=== PATIENT | male | born 1940 | race Two or more races ===

== ENCOUNTER 2025-09-06 14:05 | Inpatient (IN) | payer OTHER, MEDICAID ==
[~2025-09-06] VITALS: Ht 157.5 cm; Wt 90.3 kg
[2025-09-06] MEDS: IV NS 0.9% 1,000 ML BAG IV ONE (14:28)
[2025-09-06 14:33] LABS: PLATELET COUNT (AUTO) 86 K/uL (150-450); RED BLOOD CELL COUNT(AUTO) 2.35 MIL/uL (4.5-6.0); RED CELL DISTRIBUTION WIDTH 17.8 % (11.5-15.0); WHITE BLOOD COUNT (AUTO) 7.8 K/uL (4.3-11.0)
[2025-09-06 14:40] LABS: CALCIUM, SERUM 6.6 mg/dL (8.5-10.1); CREATININE 1.0 mg/dL (0.6-1.3); SODIUM SERUM 142 mmol/L (136-145); UREA NITROGEN, BLOOD 27 mg/dL (7-18)
[2025-09-06] MEDS: CEFTRIAXONE 1 G in IV D5W 50 ML IV ONE (14:50)
[2025-09-06 14:52] LABS: ASPARTATE AMINOTRANSFERASE 32 U/L (15-37); LACTIC ACID 2.1 mmol/L (0.4-2.0); NT-PRO BNP 1081 pg/mL (0-125); TOTAL PROTEIN, SERUM 4.2 g/dL (6.4-8.2)
[2025-09-06] MEDS ORDERED: MAGN400O6 PO (14:55)
[2025-09-06] MEDS ORDERED: CALCIUM PO (14:55)
[2025-09-06] MEDS ORDERED: ZINC50TA69 PO (14:55)
[2025-09-06] MEDS ORDERED: LEVO75TA7 PO (14:55)
[2025-09-06] MEDS ORDERED: MAGN355O5 PO (14:55)
[2025-09-06] MEDS ORDERED: SENN-261 PO (14:55)
[2025-09-06] MEDS ORDERED: SIME80TA15 PO (14:55)
[2025-09-06] MEDS ORDERED: OXYB5TAB16 PO (14:55)
[2025-09-06] MEDS ORDERED: AMIN30LI66 PO (14:55)
[2025-09-06] MEDS ORDERED: INSU100V39 SQ ×2 (14:55)
[2025-09-06] MEDS ORDERED: CRAN400C PO (14:55)
[2025-09-06] MEDS ORDERED: POLY119P17 PO (14:55)
[2025-09-06] MEDS ORDERED: ASCO500C17 PO (14:55)
[2025-09-06] MEDS ORDERED: ACET-73 PO (14:55)
[2025-09-06] MEDS ORDERED: OXYC5TAB3 PO (14:55)
[2025-09-06] MEDS ORDERED: ACET325T53 PO ×2 (14:55)
[2025-09-06] MEDS ORDERED: FAMO20TA8 PO (14:55)
[2025-09-06] MEDS ORDERED: DOCU50LI PO (14:55)
[2025-09-06] MEDS ORDERED: LOSA50TA39 PO (14:55)
[2025-09-06] MEDS ORDERED: FINA5TAB11 PO (14:55)
[2025-09-06] MEDS ORDERED: MULT-213 PO (14:55)
[2025-09-06] MEDS ORDERED: ATOR40TA PO (14:55)
[2025-09-06] MEDS ORDERED: TIZA4TAB5 PO (14:55)
[2025-09-06] MEDS ORDERED: GABA-532 PO (14:55)
[2025-09-06] MEDS ORDERED: LIDO1ADH71 TP (14:55)
[2025-09-06] MEDS ORDERED: TAMS-12 PO (14:55)
[2025-09-06] MEDS ORDERED: [UNRECOGNIZED DRUG - OTHER] PO (14:55)
[2025-09-06] MEDS ORDERED: BISA10SU61 RC (14:55)
[2025-09-06] MEDS ORDERED: DEXA4TAB PO (14:55)
[2025-09-06] MEDS ORDERED: IV NS 0.9% 250 ML IV ONE (15:20)
[2025-09-06] MEDS ORDERED: IOHEXOL-350 100 ML VIAL IV ONE (15:20)
[2025-09-06] MEDS ORDERED: FUROSEMIDE 20 MG/2 ML VIAL ONE (16:32)
[2025-09-06] MEDS: FUROSEMIDE 20 MG/2 ML VIAL IV ONE (16:39)
[2025-09-06] MEDS ORDERED: ALBUTEROL FS 2.5 MG/3 ML VIAL.NEB NEB PRN (18:00)
[2025-09-06] MEDS ORDERED: SIMETHICONE 80 MG TAB.CHEW PO PRN (18:00)
[2025-09-06] MEDS ORDERED: HYDROCODONE/APAP 5/325MG TABLET PO PRN (18:00)
[2025-09-06] MEDS ORDERED: ONDANSETRON HCL/PF 4 MG/2 ML VIAL IVP PRN (18:00)
[2025-09-06] MEDS ORDERED: DEXTROSE 50%-WATER 50 ML DISP.SYRIN IV PRN (18:00)
[2025-09-06] MEDS ORDERED: IPRATROPIUM NEB FS 0.5 MG/2.5 ML AMPUL.NEB NEB PRN (18:00)
[2025-09-06] MEDS ORDERED: MAG HYDROX/AL HYDROX/SIMETH 30 ML UDC PO PRN (18:00)
[2025-09-06] MEDS ORDERED: MAGNESIUM HYDROXIDE 30 ML UDC PO PRN (18:00)
[2025-09-06] MEDS ORDERED: BISACODYL SUPP (10 MG) 10 MG/SUPP.RECT SUPP.RECT RC PRN (18:00)
[2025-09-06] MEDS ORDERED: Z GUARD REMEDY 4 OZ OINT TP PRN (18:00)
[2025-09-06 18:52] LABS: LYMPHOCYTES % (MANUAL) 14 % (16-48); MONOCYTES % (MANUAL) 6 % (0-11.0); NEUTROPHILS % (MANUAL) 80 (42-76); PLATELET ESTIMATE DECREASED
[2025-09-06 19:57] VITALS: BP 134/76; TEMP 98.1; O2SAT 96
[2025-09-06 20:00] VITALS: BP 139/77; TEMP 98.1; O2SAT 100
[2025-09-06] MEDS: TAMSULOSIN 0.4 MG CAP.SR.24H PO SCH (21:24)
[2025-09-06] MEDS: OXYBUTYNIN CHLORIDE 5 MG TABLET PO SCH (21:24)
[2025-09-06] MEDS: ATORVASTATIN 40 MG TABLET PO SCH (21:24)
[2025-09-06] MEDS: SENNOSIDES 8.6 MG TABLET PO SCH (21:24)
[2025-09-06] MEDS: INSULIN REGULAR, HUMAN 100 UNIT/ML 3 ML VIAL SQ PRN (21:25)
[2025-09-06] MEDS: BLOOD SUGAR DIAGNOSTIC 1 EACH STRIP IN SCH (21:25)
[2025-09-07] VITALS (7 sets, daily range): BP systolic 86–146; BP diastolic 51–71; TEMP 97.9–99.1; O2SAT 99–100
[2025-09-07] MEDS: ACETAMINOPHEN 325 MG TABLET PO PRN (00:34)
[2025-09-07] MEDS: PANTOPRAZOLE 40 MG TABLET.DR PO SCH (06:38)
[2025-09-07 07:00] LABS: PLATELET COUNT (AUTO) 97 K/uL (150-450); RED BLOOD CELL COUNT(AUTO) 2.83 MIL/uL (4.5-6.0); RED CELL DISTRIBUTION WIDTH 17.8 % (11.5-15.0); WHITE BLOOD COUNT (AUTO) 8.4 K/uL (4.3-11.0)
[2025-09-07 07:08] LABS: LDL 49.0 mg/dL (0-99)
[2025-09-07 07:12] LABS: CALCIUM, SERUM 7.1 mg/dL (8.5-10.1); CREATININE 0.7 mg/dL (0.6-1.3); NT-PRO BNP 411.0 pg/mL (0-125); PHOSPHORUS 4.3 mg/dL (2.5-4.9); SODIUM SERUM 142.0 mmol/L (136-145); UREA NITROGEN, BLOOD 21.0 mg/dL (7-18)
[2025-09-07] MEDS: TIZANIDINE HCL 4 MG TABLET PO SCH (08:35)
[2025-09-07] MEDS: LEVOTHYROXINE SODIUM 75 MCG TABLET PO SCH (08:35)
[2025-09-07] MEDS: MULTIVITAMINS,THERAGRAN 1 UDTAB TABLET PO SCH (08:35)
[2025-09-07] MEDS: GABAPENTIN 100 MG CAPSULE PO SCH (08:35)
[2025-09-07] MEDS: FINASTERIDE (5 MG) 5 MG TABLET PO SCH (08:35)
[2025-09-07] MEDS: DOCUSATE SODIUM 100 MG CAPSULE PO SCH (08:35)
[2025-09-07] MEDS: LIDOCAINE 5% (PATCH) 1 EA PATCH TP SCH (08:36)
[2025-09-07] MEDS: LOSARTAN POTASSIUM 50 MG TABLET PO SCH (08:36)
[2025-09-07] MEDS: ASCORBIC ACID 500 MG TABLET PO SCH (08:36)
[2025-09-07 08:43] LABS: BASOPHILS % (MANUAL) 0 % (0.0-2.0); EOSINOPHILS % (MANUAL) 0 % (0-4); LYMPHOCYTES % (MANUAL) 12 % (16-48); MONOCYTES % (MANUAL) 7 % (0-11.0); NEUTROPHILS % (MANUAL) 81 (42-76); PLATELET ESTIMATE DECREASED
[2025-09-07] MEDS ORDERED: POLYETHYLENE GLYCOL 3350 17 GM POWD.PACK PO PRN (09:00)
[2025-09-07] MEDS: PROSOURCE / PROSTAT (PYXIS) 30 ML UDC PO SCH (10:00)
[2025-09-07] MEDS: FOLIC ACID 1 MG TABLET PO SCH (12:39)
[2025-09-07] MEDS: CEFTRIAXONE 1 G in IV D5W 50 ML IV SCH (16:06)
[2025-09-08] VITALS: BP 119/63; TEMP 99; O2SAT 100
[2025-09-08 04:00] VITALS: BP 111/63; TEMP 97.7; O2SAT 100
[2025-09-08 07:35] LABS: APPEARANCE,URINE CLEAR (CLEAR); BLOOD, URINE NEGATIVE Ery/uL (NEGATIVE); LEUKOCYTE ESTERASE ,URINE NEGATIVE (NEGATIVE); NITRITE, URINE NEGATIVE (NEGATIVE); UGLUCOSE NEGATIVE (NEGATIVE)
[2025-09-08 07:38] LABS: PLATELET COUNT (AUTO) 79 K/uL (150-450); RED BLOOD CELL COUNT(AUTO) 2.43 MIL/uL (4.5-6.0); RED CELL DISTRIBUTION WIDTH 17.4 % (11.5-15.0); WHITE BLOOD COUNT (AUTO) 5.9 K/uL (4.3-11.0)
[2025-09-08 07:41] LABS: CALCIUM, SERUM 7.3 mg/dL (8.5-10.1); CREATININE 0.6 mg/dL (0.6-1.3); SODIUM SERUM 140.0 mmol/L (136-145); UREA NITROGEN, BLOOD 28.0 mg/dL (7-18)
[2025-09-08 08:00] VITALS: BP 116/65; TEMP 98.1; O2SAT 100
[2025-09-08 08:13] LABS: ADD URINE CULTURE NO; SQUAMOUS EPITHELIAL CELL,UR None Seen /HPF (None Seen)
[2025-09-08 10:20] LABS: LYMPHOCYTES % (MANUAL) 5 % (16-48); MONOCYTES % (MANUAL) 1 % (0-11.0); NEUTROPHILS % (MANUAL) 94 (42-76)
[2025-09-08 10:22] LABS: PLATELET ESTIMATE DECREASED
[2025-09-08 11:30] VITALS: BP 119/72; TEMP 98.2; O2SAT 100
[2025-09-08 16:00] VITALS: BP 119/63; TEMP 98.8; O2SAT 100
[2025-09-08 20:00] VITALS: BP 112/61; TEMP 97.9; O2SAT 99
[2025-09-09] VITALS: BP 121/59; TEMP 98.2; O2SAT 100
[2025-09-09 07:00] VITALS: BP 125/67; TEMP 98.1; O2SAT 98
[2025-09-09 09:48] VITALS: BP 125/67
== END 2025-09-09 13:30 | DRG 189 ==
LOC: ER 14:24 → TELE 17:14 → MED 09-09 04:22
PROVIDERS: ADMIT Nurse Practitioner Acute Care; ATTEND Nurse Practitioner Acute Care
DX: J96.01 Acute respiratory failure with hypoxia (principal); T17.890A Other foreign object in other parts of respiratory tract causing asphyxiation, initial encounter; E44.0 Moderate protein-calorie malnutrition; T17.990A Other foreign object in respiratory tract, part unspecified in causing asphyxiation, initial encounter; I50.32 Chronic diastolic (congestive) heart failure; C61 Malignant neoplasm of prostate; I11.0 Hypertensive heart disease with heart failure; D53.9 Nutritional anemia, unspecified; E03.9 Hypothyroidism, unspecified; E11.9 Type 2 diabetes mellitus without complications; E66.9 Obesity, unspecified; J42 Unspecified chronic bronchitis; E83.51 Hypocalcemia; E78.5 Hyperlipidemia, unspecified; Z79.4 Long term (current) use of insulin; N40.0 Benign prostatic hyperplasia without lower urinary tract symptoms; Z92.3 Personal history of irradiation; Z68.36 Body mass index [BMI] 36.0-36.9, adult; G47.33 Obstructive sleep apnea (adult) (pediatric); W44.F9XA Other object of natural or organic material, entering into or through a natural orifice, initial encounter; Y93.9 Activity, unspecified; Y92.129 Unspecified place in nursing home as the place of occurrence of the external cause; M51.34 Other intervertebral disc degeneration, thoracic region; Z90.79 Acquired absence of other genital organ(s); Z98.890 Other specified postprocedural states
CPT/HCPCS: 36415; 71045-TC; 80048-TC; 80061-TC; 80076-TC; 81001; 82962-TC; 83605-TC; 83735-TC; 83880; 84100-TC; 84484-TC; 85027-TC; 87040-TC; 87081-TC; 93307-TC; 93970-TC; 97110-TC; 97116-TC; 97530-TC; A4223; A6254; G0378; J0696; J1815; J1938; J7030; J7050; J7060; J8540; Q9967